=== PATIENT | male | born 1965 | race American Indian/Alaskan Native ===

== ENCOUNTER 2021-02-19 18:48 | Emergency (ER) | payer OTHER ==
[2021-02-19] MEDS ORDERED: HYDROcodone/ACETAMINOPHEN 5-325 MG TAB PO STA (23:36)
--- NOTE | 2021-02-20 00:16 | Cat Scan Report ---
CT HEAD WITHOUT CONTRAST INDICATION / CLINICAL INFORMATION: Headache. TECHNIQUE: All CT scans at this location are performed using CT dose reduction for ALARA by means of automated exposure control. COMPARISON: None available. FINDINGS: BRAIN PARENCHYMA: No acute intracranial hemorrhage. No evidence of recent infarct. No mass effect or midline shift. VENTRICULAR SYSTEM/EXTRA-AXIAL SPACES: Ventricles are normal for age. No extra-axial fluid collection . ORBITS: Normal as visualized. SKELETAL SYSTEM/SOFT TISSUES: Normal bones and soft tissues. PARANASAL SINUSES/MASTOID AIR CELLS: No significant abnormality. ADDITIONAL FINDINGS: None. IMPRESSION: 1. No acute intracranial abnormality. Signer Name: Don Capellan MD Signed: 02/20/2021 12:12 AM Workstation Name: [id number]
[2021-02-20] MEDS ORDERED: KETOROLAC 30 MG/1 ML INJ IM ONE (00:25)
[2021-02-20] MEDS ORDERED: KETOROLAC 30 MG/1 ML INJ ONE (00:27)
--- NOTE | 2021-02-20 01:32 | Emergency Department Report ---
ED Headache HPI - General Chief Complaint: Headache Stated Complaint: HEADACHE/HYPERTENSION Time Seen by Provider: 02/19/21 21:36 - History of Present Illness Initial Comments: Residual [place] male presents emerge department complaining of dull throbbing headache associated dizziness and occasional blurred blurred vision for today likely letter hypertension. Was seen at emergent care for blood pressure to be 197/107 advised to the ER for further evaluation treatment options. Reports no seizure history, no nonhypertensive history noted no chest pain, no palpitation, no nausea, no vomiting, no exertional dyspnea, no shortness of breath no orthopnea, no lower extremity swelling currently takes no medications. Reports no head trauma Quality: moderate Head Injury Location: occipital, parietal Recent Head Trauma: occasional headaches Associated Symptoms: denies symptoms. denies: facial pain, fever/chills, nausea/vomiting, nasal congestion, numbness in legs/feet, sinus infection, stiff neck, vision changes Allergies/Adverse Reactions: Allergies No Known Allergies Allergy (Verified 02/19/21 19:00) Home Medications: Ambulatory Orders amLODIPine 5 mg PO DAILY #30 tab 02/20/21 ED Review of Systems ROS: Stated complaint: HEADACHE/HYPERTENSION Other details as noted in HPI Comment: All other systems reviewed and negative ED Past Medical Hx - Past Medical History Previous Medical History?: No - Medications Home Medications: Home Medications Medication Instructions Recorded Confirmed Last Taken Type amLODIPine 5 mg PO DAILY #30 tab 02/20/21 Unknown Rx ED Physical Exam - General Limitations: No Limitations General appearance: alert, in no apparent distress - Head Head exam: Present: atraumatic, normocephalic - Eye Eye exam: Present: normal appearance, PERRL, EOMI. Absent: nystagmus Pupils: Present: normal accommodation, other (Negative funduscopic examination) - ENT ENT exam: Present: normal exam, mucous membranes moist, TM's normal bilaterally - Neck Neck exam: Present: normal inspection - Respiratory Respiratory exam: Present: normal lung sounds bilaterally. Absent: respiratory distress - Cardiovascular Cardiovascular Exam: Present: regular rate, normal rhythm. Absent: systolic murmur, diastolic murmur, rubs, gallop - GI/Abdominal GI/Abdominal exam: Present: soft, normal bowel sounds - Rectal Rectal exam: Present: deferred - Extremities Exam Extremities exam: Present: normal inspection - Back Exam Back exam: Present: normal inspection, full ROM. Absent: CVA tenderness (R), CVA tenderness (L) - Neurological Exam Neurological exam: Present: alert, oriented X3, CN II-XII intact, normal gait, other (Some swaying with Romberg but no pronator drift GCS is 15) - Psychiatric Psychiatric exam: Present: normal affect, normal mood, anxious - Skin Skin exam: Present: warm, dry, intact, normal color. Absent: rash ED Course Vital Signs 02/19/21 19:00 Temperature 98.9 F Pulse Rate 96 H Respiratory 18 Rate Blood Pressure 168/97 [Left] O2 Sat by Pulse 100 Oximetry Critical care attestation.: If time is entered above; I have spent that time in minutes in the direct care of this critically ill patient, excluding procedure time. ED Disposition Clinical Impression: Cephalgia, Hypertension Disposition: HOME / SELF CARE / HOMELESS Is pt being admited?: No Does the pt Need Aspirin: No Condition: Stable Instructions: Hypertension (ED), Hypertension, Adult, Form - Headache Record, General Headache Without Cause Prescriptions: amLODIPine 5 mg PO DAILY #30 tab Referrals: PRIMARY CARE, [Primary Care Provider] - 3-[address] [facility] [Provider Group] - 3-5 Days
[2021-02-20 03:19] VITALS: BP 149/103
== END 2021-02-20 01:45 | disposition home or self-care (01) ==
LOC: ED 18:48
DX: R51.9 Headache, unspecified (principal); I10 Essential (primary) hypertension; R42 Dizziness and giddiness
CPT/HCPCS: 70450; 96372; 99284; J1885